=== PATIENT | male | born 1970 | race African-American/Black ===

== ENCOUNTER 2025-02-25 11:02 | Emergency (ER) | payer OTHER ==
[~2025-02-25] VITALS: Ht 180.3 cm; Wt 95.0 kg
[2025-02-25 11:30] VITALS: TEMP 36.6; O2SAT 100
[2025-02-25 15:00] VITALS: O2SAT 100
[2025-02-25] MEDS ORDERED: IBUP-1455 MT (15:25)
[2025-02-25 15:46] VITALS: BP 126/67; PULSE 100; RESP 18
[2025-02-25] MEDS: IBUPROFEN 600MG TABLET PO ONE (15:46)
== END 2025-02-25 15:49 | disposition home or self-care (01) ==
LOC: ER 11:02
DX: M79.89 Other specified soft tissue disorders (principal)
CPT/HCPCS: 73130; 99283

== ENCOUNTER 2025-03-02 12:11 | Emergency (ER) | payer OTHER ==
[~2025-03-02 12:11] MED LIST: IBUP-1455 MT
[2025-03-02 12:43] VITALS: PULSE 98; RESP 18; O2SAT 99
== END 2025-03-02 13:28 | disposition left against medical advice (07) ==
LOC: ER 12:11
DX: M79.642 Pain in left hand (principal)
CPT/HCPCS: 99281